=== PATIENT | female | born 1950 | race Caucasian/White ===

== ENCOUNTER → 2024-03-17 | Outpatient (CLI) | payer MEDICARE, BC ==
[2024-03-17 10:52] VITALS: BP 126/61; PULSE 81; RESP 20; TEMP 97.5
[2024-03-17] MEDS: DENOSUMAB 60 MG/ML 1 ML SYRINGE SQ NR (10:57)
== END ==
LOC: PROCWHC3 10:43
DX: M81.0 Age-related osteoporosis without current pathological fracture (principal)
CPT/HCPCS: 96372; J0897